=== PATIENT | female | born 1990 | race Caucasian/White ===

== ENCOUNTER 2022-12-31 19:30 | Inpatient (IN) | payer OTHER ==
[~2022-12-31] VITALS: Ht 172.7 cm; Wt 98.1 kg
[2022-12-31 19:54] VITALS: BP 138/86
[2022-12-31] MEDS ORDERED: PRENTAB9 PO (19:57)
[2022-12-31] MEDS ORDERED: HOME MED LIST COMPLETE! XX SCH (20:00)
[2022-12-31 20:55] LABS: HEMATOCRIT 35.3 % (36.0-47.0); MEAN CORPUSCULAR HEMOGLOBIN 31.3 pg (27.0-33.0); MEAN CORPUSCULAR VOLUME 92.2 fl (80.0-96.0); PLATELET COUNT, AUTOMATED 217 10^3/uL (150-450); RED BLOOD COUNT 3.83 10^6/uL (4.00-5.40); WHITE BLOOD COUNT 9.9 10^3/uL (4.0-10.0)
[2022-12-31 21:07] VITALS: BP 128/81
[2022-12-31] MEDS ORDERED: LACTATED RINGER'S 1000 ML IV STA (21:07)
[2022-12-31] MEDS ORDERED: OXYTOCIN DRIP 30 UNITS in IV 1 EA IV SCH (21:10)
[2022-12-31] MEDS ORDERED: CARBOPROST TROMETHAMINE 250 MCG/ML AMP IM PRN (21:10)
[2022-12-31] MEDS ORDERED: miSOPROStol 50MCG 1/2 TABLET PO PRN (21:10)
[2022-12-31] MEDS ORDERED: METHYLERGONOVINE MALEATE 0.2MG/ML 1ML VIAL IM PRN (21:10)
[2022-12-31] MEDS ORDERED: OXYTOCIN INJ 10UNITS/ML 1ML VIAL IM PRN (21:10)
[2022-12-31] MEDS ORDERED: OXYTOCIN DRIP 30 UNITS in IV 1 EA IV PRN ×6 (21:10)
[2022-12-31] MEDS ORDERED: OXYTOCIN INJ 10UNITS/ML 1ML VIAL IV PRN (21:10)
[2022-12-31] MEDS ORDERED: LIDOCAINE 1% MDV 20ML VIAL INFIL PRN (21:10)
[2022-12-31] MEDS ORDERED: LR 1,000 ML IV SCH (21:10)
[2022-12-31] MEDS ORDERED: TRANEXAMIC ACID INJection 1,000 MG in NS 100 ML IV PRN (21:10)
[2022-12-31] MEDS: LR 1,000 ML IV SCH (21:43)
[2022-12-31 21:44] VITALS: BP 127/74
[2022-12-31 22:16] VITALS: BP 135/74
[2022-12-31 22:59] VITALS: BP 130/77
[2023-01-01] VITALS (29 sets, daily range): BP systolic 100–151; BP diastolic 50–85
[2023-01-01] MEDS ORDERED: diphenhydrAMINE 50MG/ML VIAL IV PRN (02:00)
[2023-01-01] MEDS ORDERED: EPIDURAL/PCA KEYS XX PRN (02:00)
[2023-01-01] MEDS ORDERED: ONDANSETRON 4MG 2ML VIAL IV PRN (02:00)
[2023-01-01] MEDS ORDERED: NALOXONE INJ 0.4MG/1ML VIAL IV PRN (02:00)
[2023-01-01] MEDS ORDERED: ePHEDrine SULFATE 25 MG/5 ML(5MG/ML) SYRINGE IVP PRN (02:00)
[2023-01-01] MEDS ORDERED: FENTANYL/ROPIVACAINE/NACL BAG 100 ML EPIDURAL SCH (02:00)
[2023-01-01] MEDS ORDERED: LR 500 ML IV PRN (02:00)
[2023-01-01] MEDS ORDERED: REFLB XX ONE (02:19)
[2023-01-01] MEDS: LR 1,000 ML IV SCH (03:12)
[2023-01-01] MEDS ORDERED: IBUPROFEN 800 MG TAB PO PRN (10:10)
[2023-01-01] MEDS ORDERED: ACETAMINOPHEN 500 MG TAB PO PRN (10:10)
[2023-01-01] MEDS ORDERED: ACETAMINOPHEN TAB 650MG DOSE (2X325MG) PO PRN (10:10)
[2023-01-01] MEDS ORDERED: METHYLERGONOVINE MALEATE 0.2 MG TAB PO PRN (10:10)
[2023-01-01] MEDS ORDERED: DIBUCAINE 1% OINTMENT 30GM TOP PRN (10:10)
[2023-01-01] MEDS ORDERED: IBUPROFEN 600MG TAB PO PRN (10:10)
[2023-01-02] MEDS: DOCUSATE SODIUM 100MG CAPSULE PO SCH ×3 (00:42→21:20)
[2023-01-02 06:00] VITALS: BP 109/62
[2023-01-02] MEDS ORDERED: PRENATAL VITAMINS CHEWABLE TABLET PO SCH (09:00)
[2023-01-02 09:24] VITALS: BP 109/62
[2023-01-02 18:00] VITALS: BP 127/81
[2023-01-03 06:00] VITALS: BP 113/72
== END 2023-01-03 15:30 | disposition home or self-care (01) | DRG 807 ==
LOC: M LDI 19:30 → M OBS 01-01 17:00
PROVIDERS: ADMIT Obstetrics & Gynecology; ATTEND Obstetrics & Gynecology
PROC: 3E033VJ Introduction of Other Hormone into Peripheral Vein, Percutaneous Approach (ICD-10-PCS; 2022-12-31)
PROC: 10E0XZZ Delivery of Products of Conception, External Approach (ICD-10-PCS; principal; 2023-01-01)
PROC: 0KQM0ZZ Repair Perineum Muscle, Open Approach (ICD-10-PCS; 2023-01-01)
DX: O48.0 Post-term pregnancy (principal); Z37.0 Single live birth; Z3A.41 41 weeks gestation of pregnancy; O26.03 Excessive weight gain in pregnancy, third trimester; O77.0 Labor and delivery complicated by meconium in amniotic fluid; O69.1XX0 Labor and delivery complicated by cord around neck, with compression, not applicable or unspecified; O70.1 Second degree perineal laceration during delivery